=== PATIENT | female | born 1960 | race Caucasian/White ===

== ENCOUNTER 2023-06-26 16:31 | Inpatient (IN) | payer OTHER ==
[~2023-06-26] VITALS: Ht 165.1 cm; Wt 53.7 kg
[2023-06-26] MEDS ORDERED: EUTHYROX50 MCG (19:51)
[2023-06-26] MEDS ORDERED: TRAM50 (19:51)
[2023-06-26] MEDS ORDERED: ALBU2.5V5 INH (19:52)
[2023-06-26] MEDS ORDERED: MED FOR ANXIETY (19:52)
[2023-06-26] MEDS ORDERED: ALBU90OI (19:52)
[2023-06-26] MEDS ORDERED: [UNRECOGNIZED DRUG - REMARK] (19:52)
[2023-06-26 20:15] LABS: BASOPHILS ABSOLUTE AUTO 0.04 K/mm3 (0.00-0.23); BASOPHILS PERCENT AUTO 1 % (0-2); EOSINOPHILS ABSOLUTE AUTO 0.12 K/mm3 (0.00-0.68); EOSINOPHILS PERCENT AUTO 2 % (0-6); Hematocrit 40.4 % (33.0-51.0); Hemoglobin 13.8 g/dL (11.5-16.0); IMMATURE GRAN ABSOLUTE AUTO 0.03 K/mm3 (0.00-0.10); IMMATURE GRAN PERCENT AUTO 0 % (0-1); LYMPHOCYTES ABSOLUTE AUTO 0.58 K/mm3 (0.84-5.20); LYMPHOCYTES PERCENT AUTO 7 % (21-46); MONOCYTES ABSOLUTE AUTO 0.69 K/mm3 (0.16-1.47); MONOCYTES PERCENT AUTO 9 % (4-13); Mean Corpuscular HGB 33.3 pg (26.0-34.0); Mean Corpuscular HGB Conc 34.2 g/dL (31.5-36.5); Mean Corpuscular Volume 97 fL (80-100); Mean Platelet Volume 11.3 fL (9.1-12.4); NEUTROPHILS ABSOLUTE AUTO 6.63 K/mm3 (1.96-9.15); NEUTROPHILS PERCENT AUTO 82 % (41-73); Platelet Count 257 K/mm3 (150-400); RDW Coefficient Variation 13.2 % (11.7-14.2); RDW Standard Deviation 47.3 fL (35.1-46.3); Red Blood Cell Count 4.15 M/mm3 (3.80-5.20); White Blood Cell Count 8.09 K/mm3 (4.00-11.30)
[2023-06-26 20:26] LABS: Albumin, Blood 3.2 g/dL (3.4-5.0); Albumin/Globulin Ratio 0.7 (0.8-1.8); Bilirubin, Total 0.8 mg/dL (0.1-1.0); Calcium, Blood 9.2 mg/dL (8.5-10.1); Creatinine, Blood 0.67 mg/dL (0.40-1.00); Globulin, Blood 4.4 g/dL (2.2-4.0); Total Protein, Blood 7.6 g/dL (6.4-8.2)
[2023-06-26] MEDS ORDERED: NS 1,000 ML IV SCH ×2 (20:35→23:30)
[2023-06-26] MEDS ORDERED: Albuterol 2.5 MG/3 ML VIAL INH ONE (20:35)
[2023-06-26] MEDS ORDERED: LevoFLOXacin 500MG/D5W 100ML 100 ML IV ONE (22:05)
[2023-06-26] MEDS ORDERED: Potassium Chloride 20 MEQ/15 ML UDC PO ONE (22:20)
[2023-06-26] MEDS ORDERED: Ondansetron HCl 2 MG / ML 2ML Vial IV PRN (22:20)
[2023-06-26] MEDS ORDERED: Acetaminophen 325 MG TABLET PO PRN (22:20)
[2023-06-26] MEDS ORDERED: Ipratropium/Albuterol SulF 2.5-0.5MG/3 ML Amp INH PRN (22:25)
[2023-06-26] MEDS ORDERED: FLU VACC QS2023-24(6MOS UP)/PF 60 MCG/0.5 ML SYRINGE IM ONE (22:25)
[2023-06-26] MEDS ORDERED: Enoxaparin 40 MG/0.4 ML SYR SC SCH (23:00)
[2023-06-27 01:13] VITALS: BP 88/63
--- NOTE | 2023-06-27 03:24 | NUR ---
Shift Summary Patient is a 63 year old female that was admitted from the ER. She came in with SOB. Her admission diagnosis is acute hypoxia, Respiratory failure, and hypotention. She also has diagnosis of Bipolar disorder, Depression, COPD, Breast cancer, Cervical cancer, and lung cancer. She is alert and oriented x 4. Respirations are regular and unlabored. She is on oxygen per nasal cannula at 2L. She is not on any oxygen at baseline. Her sat without oxygen was 85% to 86%. She is independently ambulatory in the room. States that she is going home tomorrow. Bed is in low posiion with call light in reach. She refused to have am labs drawn and states that she is going home in the morning.
[2023-06-27] MEDS ORDERED: CefTRIAXone Sodium 1,000 MG in NS 50 ML IV SCH (09:00)
[2023-06-27] MEDS ORDERED: Azithromycin 500 MG in NS 250 ML IV SCH (09:00)
== END 2023-06-27 07:26 | disposition left against medical advice (07) | DRG 193 ==
LOC: ER 16:31 → MEDS 22:17
PROVIDERS: Student in an Organized Health Care Education/Training Program; ADMIT Internal Medicine
DX: J18.9 Pneumonia, unspecified organism (principal); J96.01 Acute respiratory failure with hypoxia; J44.0 Chronic obstructive pulmonary disease with (acute) lower respiratory infection; F17.210 Nicotine dependence, cigarettes, uncomplicated; E78.5 Hyperlipidemia, unspecified; F31.9 Bipolar disorder, unspecified; Z53.29 Procedure and treatment not carried out because of patient's decision for other reasons; Z79.899 Other long term (current) drug therapy; Z88.0 Allergy status to penicillin; Z85.3 Personal history of malignant neoplasm of breast; Z85.118 Personal history of other malignant neoplasm of bronchus and lung; Z79.890 Hormone replacement therapy; Z79.51 Long term (current) use of inhaled steroids
CPT/HCPCS: 71260; 80053; 83880; 84484; 85025; 93005; 93010; 94640; 94664; 96361; 96374-59; 99285-25; A9270; J1956; J7030; Q9967